=== PATIENT | female | born 1970 | race Caucasian/White ===

== ENCOUNTER 2016-07-14 17:50 | Emergency (ER) | payer BC, OTHER ==
[2016-07-14 18:52] VITALS: BP 155/103
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
== END 2016-07-14 19:02 | disposition home or self-care (01) ==
LOC: ED 17:50
DX: H53.149 Visual discomfort, unspecified (principal); Z04.1 Encounter for examination and observation following transport accident
CPT/HCPCS: 99281